=== PATIENT | male | born 1965 | race Caucasian/White ===

== ENCOUNTER → 2016-11-08 08:29 | Outpatient (CLI) | payer MEDICARE, BC | END | disposition home or self-care (01) | LOC: D.US 08:29 | DX: N50.89 Other specified disorders of the male genital organs (principal) ==

== ENCOUNTER → 2017-04-17 11:18 | Outpatient (CLI) | payer MEDICARE, BC | END | disposition home or self-care (01) | LOC: D.MRI 11:18 | DX: M25.512 Pain in left shoulder (principal) ==

== ENCOUNTER → 2020-03-27 09:02 | Outpatient (CLI) | payer MEDICARE, BC | END | disposition home or self-care (01) | LOC: D.NM 09:02 | PROVIDERS: ATTEND Nurse Practitioner | DX: K80.70 Calculus of gallbladder and bile duct without cholecystitis without obstruction (principal) ==

== ENCOUNTER 2020-04-16 05:40 | Day surgery (SDC) | payer MEDICARE, BC ==
--- NOTE | 2020-04-14 10:47 | NUR ---
T-96.3 POX- 98% HR- 54 RR-16 BP LA-135/95 PT NOT CURRENTLY ON MEDICATION STATES DR IS WATCHING IT. PT DOES HV A HX OF HTN AND TAKING MEDICATION.
[~2020-04-16] VITALS: Ht 177.8 cm; Wt 106.1 kg
[~2020-04-16 05:40] MED LIST: ACETAZOLAMIDE125 MG PO; SINGULAIR10 MG PO; TIMOPTIC 0.5 % O5 ML EACH EYE; TRAVATAN Z2.5 ML EACH EYE; ZOCOR20 MG PO
[2020-04-16 06:24] VITALS: BP 147/103; Ht 177.8 cm; Wt 106.1 kg
[2020-04-16 06:54] LABS: ANION GAP 11.3 mmol/L (8-16); CALCIUM 8.1 mg/dL (8.5-10.1); CARBON DIOXIDE 25.6 mmol/L (21.0-32.0); CREATININE - SERUM 1.1 mg/dL (0.6-1.3); POTASSIUM - SERUM 3.9 mmol/L (3.5-5.1)
[2020-04-16 07:30] LABS: APTT 30.4 SECONDS (22.8-39.4); INR 0.91 (0.85-1.17); PROTIME 12.2 SECONDS (11.6-15.0)
[2020-04-16 07:31] LABS: BILIRUBIN NEGATIVE (NEGATIVE); GLUCOSE NEGATIVE (NEGATIVE); KETONE NEGATIVE (NEGATIVE); NITRITE NEGATIVE (NEGATIVE); SPECIFIC GRAVITY 1.025 (1.005-1.020); UROBILINOGEN NORMAL (NORMAL)
[2020-04-16 07:44] LABS: HEMATOCRIT 46.8 % (42.0-54.0); HEMOGLOBIN 15.6 g/dL (13.5-17.5); LYMPHOCYTES 30.1 % (15-50); MCH 29.9 pg (26.0-34.0); MCHC 33.3 g/dL (31.0-37.0); MCV 89.7 fL (80.0-100.0); MEAN PLATELET VOLUME 10.7 fL (7.4-10.4); NEUTROPHILS 56.9 % (40-80); PLATELET COUNT 181 10x3/uL (130-400); RBC 5.22 10x6/uL (4.20-6.10); RDW 13.2 % (11.5-14.5); WBC 6.5 10x3/uL (4.8-10.8)
[2020-04-16] MEDS ORDERED: HYDROCODON-ACE1 EA10 PO (09:00)
--- NOTE | 2020-04-16 11:31 | NUR ---
ABLE TO VOID, DISCHARGE INSTRUCTIONS GONE OVER. IV DC'D WITH TIP INTACT.
--- NOTE | 2020-04-17 11:51 | OP ---
PATIENT NAME: SOTO LY MEDICAL RECORD: [id number] :61 LOCATION:[facility] ADMISSION DATE: SURGEON: GREGORIO ESTRADA MD DATE OF OPERATION: 04/16/2020 PREOPERATIVE DIAGNOSES: 1. Gallstones. 2. Ventral hernia. 3. Hyperlipidemia. 4. Hypertension. POSTOPERATIVE DIAGNOSES: 1. Gallstones. 2. Ventral hernia. 3. Hyperlipidemia. 4. Hypertension. PROCEDURES: 1. Laparoscopic cholecystectomy. 2. Ventral hernia repair. SURGEON: Gregorio Estrada MD REPORT OF PROCEDURE: The patient's abdomen was prepped and draped in sterile fashion. A semicircular incision was made on the inferior aspect of the umbilicus. Electrocautery was used to dissect through the subcutaneous tissues and we came to a small hernia sac. This hernia sac was penetrated and it contained fatty contents. The hernia sac was resected all the way down to the fascial edges. The hernia defect was about 1.5 cm in greatest diameter. I was able to bluntly penetrate through the underlying fatty tissue and into the abdominal cavity. A 0 Vicryls were placed on the tissue bilaterally. I then inserted a 12-mm Gilmar port. After insufflation was obtained, a 5-mm trocar was placed in the epigastrium and two more 5-mm trocars were placed in the right subcostal region. The gallbladder was grasped and elevated. There were some inflammatory fatty tissue that was adherent to the gallbladder and the liver. This was taken down using electrocautery and blunt dissection. We eventually dissected out the cystic artery and cystic duct and had a critical view of safety. These structures were clipped proximally and distally and ligated in standard fashion. The gallbladder was taken off the liver bed using electrocautery and placed into the right upper quadrant. Any bleeding from the liver bed was then treated with electrocautery. We irrigated out the right upper quadrant and assured there was no sign of any bleeding or bile leakage. The ports and insufflation were then removed and the gallbladder was taken out through the umbilicus. The umbilical fascial defect was then closed transversely using interrupted 0 Prolenes times 4. There was good approximation of the tissue with no signs of any tension. The wound was then irrigated out thoroughly with normal saline. The umbilicus was tacked down to the fascia using a single interrupted 3-0 Vicryl. Subcutaneous tissues were reapproximated with multiple interrupted 3-0 Vicryl. A total of 10 mL of 0.25% Marcaine plain was infused around the umbilical region and 10 mL of 0.25% Marcaine with epinephrine was infused into the upper abdominal incisions. The incisions were then closed with running subcutaneous 5-0 Monocryl and dressed appropriately. COMPLICATIONS: None. OPERATIVE REPORT [id number] ALIYAHSOTO RAY CONDITION: Stable. ANESTHESIA: General endotracheal and local. BLOOD LOSS: Minimal. TRANSINT:[id number] Voice Confirmation ID: [id number] DOCUMENT ID: [id number] GREGORIO ESTRADA MD at 1151 CC: HERIBERTO MCFADDEN DO [id number] DICTATION DATE: 04/16/20904 SAFETY COMPANION: 04/16/20935 [facility] 04/16/20 [facility] [address] [place] [address]
== END 2020-04-16 11:34 | disposition home or self-care (01) ==
LOC: D.OPS 05:40 → D.PAN 07:30 → D.OPS 07:30
PROVIDERS: Orthopaedic Surgery; ATTEND Surgery
DX: K80.80 Other cholelithiasis without obstruction (principal); K43.9 Ventral hernia without obstruction or gangrene; E78.5 Hyperlipidemia, unspecified; I10 Essential (primary) hypertension